=== PATIENT | male | born 1980 | race Caucasian/White ===

== ENCOUNTER 2020-05-31 12:06 | Emergency (ER) | payer SELFPAY ==
[2020-05-31 12:46] VITALS: BP 145/86; PULSE 116; RESP 20; TEMP 36.8; O2SAT 99
[2020-05-31] MEDS: TETRACAINE HCL 0.5% OPHTH SOLN 4 ML BTL 1 DROP LEFT EYE (13:20)
--- NOTE | 2020-05-31 13:55 | ED.EYEPROB ---
HPI - Eye Problem General Chief complaint: Eye Problems Stated complaint: something in the left eye Source: patient Mode of arrival: ambulatory Limitations: no limitations History of Present Illness HPI Narrative: José Miguel is a 40M with a PMH of tobacco abuse that presented to the ED with left eye irritation and pain. he has been [place]. He was sleeping at a rest stop yesterday when he woke with irritation in his left eye and blurry vision and a globus sensation. it did not go away so we came to the ED. He denies any trauma, fevers, chills, drainage, or right high concerns. Review of Systems Constitutional: Constitutional: Reports no additional constitutional complaints, Denies chills and Denies fever(s) Eyes: Eyes: Reports as per HPI ENT: Reports system reviewed and no additional complaints, except as documented Cardiovascular: Cardiovascular: Reports as per HPI Respiratory: Respiratory: Reports as per HPI Gastrointestinal: Gastrointestinal: Reports as per HPI Genitourinary: Genitourinary: Reports no additional male genitourinary complaints Musculoskeletal: Musculoskeletal: Reports no additional musculoskeletal complaints Integumentary/Breasts: Skin/Breast: Reports system reviewed and no additional complaints, except as docu Neurologic: Reports system reviewed and no additional complaints, except as documented Psychiatric: Psychiatric: Reports no additional psychiatric complaints Endocrine: Endocrine: Reports no additional endocrine complaints Hematologic/Lymphatic: Hematologic/Lymphatic: Reports no additional hematologic/lymphatic complaints Allergic/Immunologic: Allergic/Immunologic: Reports no additional allergic/immunologic complaints [facility] Social History Social History Gender identity (if verbalized by the patient): Male Exam Const: General: no acute distress and alert Orientation/consciousness: patient oriented x3 Limitations: No altered mental status HENMT: Other: normocephalic, atraumatic Eyes: Other: right eye was normal with the all my and PERRL. left eye had EOMI and PERRL. however, there was significant conjunctiva injection and slight eyelid swelling. No drainage. site was grossly intact. a floor seen eye exam was performed. a corneal abrasion was identified over the pupil. No corneal ulcer or Shirley sign. after applying tetracaine eyedrops he reported that his vision turned to normal. No foreign body identified. Neck: Neck: normal visual inspection Chest: Chest palpation & inspection: normal inspection of the chest Resp: Effort & Inspection: normal respiratory effort Auscultation: clear to auscultation bilaterally Cardio: Rate: regular rate Skin: General skin exam: normal color Rashes: no rashes Neuro: General: patient oriented x3 and moves all extremities Extrem: General: normal to inspection Psych: Mental Status: mental status grossly normal Course Course Emergency Course: José Miguel was seen and evaluated the eye exam was performed. It was consistent with corneal abrasion possibly conjunctivitis. He was given ciprofloxacin eyedrops in the ED and a prescription on discharge. he is instructed not to ride his motorcycle given the lack of depth perception with one eye after his left eye was covered. he was instructed to follow-up with an eye doctor as soon as possible. we offered to set 1 up around here but he was not interested. after the as per Chad benson eyedrops were given he was discharged to follow-up with his own eye doctor. Vital Signs Vital signs: Vital Signs Temperature 98.2 F 05/31/20 12:46 Pulse Rate 116 H 05/31/20 12:46 Respiratory Rate 05/31/20 12:46 Blood Pressure 145/86 H 05/31/20 12:46 Pulse Oximetry 99 05/31/20 12:46 Temperature 98.2 F 05/31/20 12:46 Pulse Rate 116 H 05/31/20 12:46 Respiratory Rate 05/31/20 12:46 Blood Pressur
[2020-05-31] MEDS: CIPROFLOXACIN HCL 0.3% OP SOLN 2.5 ML BTL 1 DROP EACH EYE (14:30)
== END 2020-05-31 14:16 | disposition home or self-care (01) ==
PROVIDERS: Emergency Provider Family Medicine
DX: S05.02XA Injury of conjunctiva and corneal abrasion without foreign body, left eye, initial encounter (principal); H10.9 Unspecified conjunctivitis
CPT/HCPCS: 99283